=== PATIENT | female | born 1970 | race African-American/Black ===

== ENCOUNTER 2018-01-15 11:55 | Emergency (ER) | payer MEDICAID ==
[~2018-01-15] VITALS: Ht 167.6 cm; Wt 137.0 kg
[2018-01-15] MEDS ORDERED: LOSA100T14 PO (12:08)
[2018-01-15] MEDS ORDERED: CHOL200010 PO (12:08)
[2018-01-15] MEDS ORDERED: GABA-529 PO (12:08)
[2018-01-15] MEDS ORDERED: HYDR25TA PO (12:08)
[2018-01-15] MEDS ORDERED: AMLO10TA80 PO (12:08)
[2018-01-15] MEDS ORDERED: LEVO25TA7 PO (12:08)
[2018-01-15] MEDS ORDERED: ACETAMINOPHEN 325MG TABLET PO ONE (14:45)
[2018-01-15 16:03] LABS: CLARITY URINE TURBID (CLEAR); COLOR URINE YELLOW (YELLOW); KETONES URINE TRACE (NEGATIVE); LEUKOCYTE ESTERASE URINE NEGATIVE (NEGATIVE); NITRITE URINE NEGATIVE (NEGATIVE); OCCULT BLOOD URINE TRACE (NEGATIVE); PH URINE 5.5 (4.5-8.0); PROTEIN URINE 1+ (NEGATIVE); SPECIFIC GRAVITY URINE 1.024 (1.005-1.030)
[2018-01-15 16:13] LABS: *AMPHETAMINES SCREEN URINE NEGATIVE (NEGATIVE); *BARBITURATES SCREEN URINE NEGATIVE (NEGATIVE); *BENZODIAZEPINES SCREEN URINE NEGATIVE (NEGATIVE); *COCAINE SCREEN URINE NEGATIVE (NEGATIVE); CANNABINOID URINE SCREEN NEGATIVE (NEGATIVE); METHADONE URINE SCREEN NEGATIVE (NEGATIVE); OPIATES URINE SCREEN NEGATIVE (NEGATIVE)
[2018-01-15 16:14] LABS: PHENCYCLIDINE URINE SCREEN NEGATIVE (NEGATIVE)
[2018-01-15] MEDS ORDERED: SULFAMETHOXAZOLE/TRIMETHOPRIM 800/160MG TABLET PO ONE (19:45)
[2018-01-15 20:15] VITALS: BP 168/75
== END 2018-01-15 20:25 | disposition home or self-care (01) ==
LOC: ER 13:52
DX: M46.96 Unspecified inflammatory spondylopathy, lumbar region (principal); N39.0 Urinary tract infection, site not specified; E86.0 Dehydration; R80.9 Proteinuria, unspecified; R82.4 Acetonuria; R82.71 Bacteriuria; M47.16 Other spondylosis with myelopathy, lumbar region; N17.0 Acute kidney failure with tubular necrosis; H57.8 Other specified disorders of eye and adnexa; R31.9 Hematuria, unspecified; I10 Essential (primary) hypertension; F17.200 Nicotine dependence, unspecified, uncomplicated; Z87.440 Personal history of urinary (tract) infections; Z87.09 Personal history of other diseases of the respiratory system; Z88.0 Allergy status to penicillin; Z79.899 Other long term (current) drug therapy
CPT/HCPCS: 71045; 72070; 72100; 80305; 81003; 81025; 93005; 99285